=== PATIENT | female | born 1995 | race Caucasian/White ===

== ENCOUNTER → 2020-10-25 07:11 | Outpatient (CLI) | payer OTHER, SELFPAY ==
[2020-10-25 17:20] LABS: SARS-CoV-2 RNA PCR Positive
== END ==
PROVIDERS: PCP Physician Assistant; Visit Provider Physician Assistant
DX: U07.1 COVID-19 (principal)
CPT/HCPCS: C9803; U0003; U0005

== ENCOUNTER 2021-08-26 14:53 | Emergency (ER) | payer OTHER, SELFPAY ==
[2021-08-26 15:27] VITALS: BP 119/95; PULSE 91; RESP 18; TEMP 36.7; O2SAT 100
[2021-08-26] MEDS: SODIUM CHLORIDE 0.9% IV 1,000 ML 999 ML IV CONT (15:45)
[2021-08-26 15:53] LABS: Basophils Percent Auto 0.4 % (0.2-1.2); Eosinophils Absolute Auto 0.1 K/mm3 (0-0.3); Eosinophils Percent Auto 0.8 % (0-4.4); Hematocrit 40.7 % (37.0-47.0); Hemoglobin 13.9 g/dL (12.0-15.0); Immature Granulocyte Absolute 0.03 K/mm3 (0.00-0.031); Immature Granulocyte Percent A 0.4 % (0-0.5); Lymphocytes Absolute Auto 1.82 K/mm3 (0.9-3.2); Lymphocytes Percent Auto 23.2 % (18.3-44.2); Mean Corpuscular HGB Conc 34.2 g/dl (32-36); Mean Corpuscular Hemoglobin 33.2 pg (26-34); Mean Corpuscular Volume 97.1 fl (80-100); Mean Platelet Volume 8.9 fl (7.4-10.4); Monocytes Absolute Auto 0.4 K/mm3 (0.1-0.6); Monocytes Percent Auto 5.6 % (2.6-8.5); Neutrophils Absolute Auto 5.5 K/mm3 (1.3-6.7); Neutrophils Percent Auto 69.6 % (45.5-73.1); Platelet Count Result 278 k/mm3 (150-375); Red Blood Count 4.19 M/mm3 (4.2-5.4); Red Cell Distribution Width 12.4 % (11.5-14.5); White Blood Count 7.9 K/mm3 (4.5-10.0)
[2021-08-26 16:00] LABS: Alanine Aminotransferase 29 U/L (6-35); Albumin Level 4.8 g/dL (3.5-5.1); Alkaline Phosphatase 92 U/L (38-126); Anion Gap 11 mmol/L (8-16); Aspartate Amino Transferase 32 U/L (14-36); Bilirubin,Total 0.4 mg/dL (0.2-1.3); Blood Urea Nitrogen 11 mg/dL (7-17); Calcium 8.9 mg/dL (8.4-10.2); Carbon Dioxide 24 mmol/L (22-30); Chloride 102 mmol/L (98-107); Estimated CRCL calculation 116 ml/min; Estimated Glomerular Filt Rate > 60; Glucose 98 mg/dL (65-110); Lipase 44 U/L (23-300); Sodium 137 mmol/L (137-145)
--- NOTE | 2021-08-26 16:09 | ED.ABDPAIN ---
HPI - Abdominal Pain General Chief Complaint: Nausea/Vomiting/Diarrhea Stated Complaint: vomiting x 1 week Time Seen by Provider: 08/26/21 15:07 History of Present Illness HPI narrative: Patient is a 26-year-old female who presents the ER with diarrhea x1 week. Loose stools daily anytime she eats or drinks. Very rare emesis. Had 1 day where she felt improved for Adderall worsened again. Contacted her PCP who recommended she come to the ER for fluids and lab work. She has had no syncope. No blood in stool. No abdominal pain other than occasional cramping before she has to go the bathroom. No history of inflammatory bowel disease in her family. No known sick contacts. Tried Pepto-Bismol with no relief. Related Data Home Medications Medication Instructions Recorded Confirmed dextroamphetamine-amphetamine PO 08/26/21 sertraline mg 08/26/21 Allergies Allergy/AdvReac Type Severity Reaction Status Date / Time No Known Allergies Allergy Mild Verified 08/26/21 15:25 Review of Systems Review of Systems: All systems reviewed & are unremarkable except as noted in HPI and below Constitutional: Constitutional: Denies chills, Reports fatigue and Denies fever(s) ENT: Denies nasal congestion and Denies sore throat Cardiovascular: Cardiovascular: Denies chest pain, Denies rapid heart rate and Denies radiating jaw, neck or arm pain Respiratory: Respiratory: Denies cough, Denies dyspnea and Denies wheezing Gastrointestinal: Gastrointestinal: Denies abdominal pain, Reports diarrhea, Reports nausea and Reports vomiting Genitourinary: Genitourinary: Denies nocturia and Denies dysuria PMFSH Past Medical History Medical History (Updated 08/26/21 @ 16:15 by Ankur Fang MD) Depression with anxiety Surgical History Surgical History (Updated 08/26/21 @ 16:13 by Ankur Fang MD) No pertinent past surgical history Family History Family History Other Family history of blood dyscrasia Social History Social History Smoking status: Never smoker Second hand tobacco smoke exposure: No Alcohol intake: current Drinks per week: 5 Substance use: never Exam Narrative: GENERAL: Well-appearing, well-nourished, and in no acute distress. HEAD: Normocephalic, atraumatic. EYES: PERRL and EOMI. CHEST: Clear to auscultation. No respiratory distress. HEART: Regular rate and rhythm. Normal peripheral pulses. ABDOMEN: Soft, nontender, nondistended. EXTREMITIES: Normal range of motion. No edema. SKIN: Warm, dry, no rash. NEURO: Alert and oriented x3. PSYCH: Normal mood and affect. Course Course Emergency Course: Patient resting comfortably. Hydrated. Informed results. Discharge home. Vital Signs Vital signs: Vital Signs Temperature 98.1 F 08/26/21 15:27 Pulse Rate 91 08/26/21 15:27 Respiratory Rate 18 08/26/21 15:27 Blood Pressure 119/95 H 08/26/21 15:27 Pulse Oximetry 100 08/26/21 15:27 Temperature 98.1 F 08/26/21 15:27 Pulse Rate 91 08/26/21 15:27 Respiratory Rate 18 08/26/21 15:27 Blood Pressure 119/95 H 08/26/21 15:27 Pulse Oximetry 100 08/26/21 15:27 MDM - Abdominal Pain Lab Data Result diagrams: 08/26/21 15:33 08/26/21 15:33 Labs: Lab Results 08/26/21 08/26/21 Range/Units 15:33 15:33 WBC 7.9 (4.5-10.0) K/mm3 RBC 4.19 L (4.2-5.4) M/mm3 Hgb 13.9 (12.0-15.0) g/dL Hct 40.7 (37.0-47.0) % MCV 97.1 (80-100) fl MCH 33.2 (26-34) pg MCHC 34.2 (32-36) g/dl RDW 12.4 (11.5-14.5) % Plt Count 278 (150-375) k/mm3 MPV 8.9 (7.4-10.4) fl Immature Gran % (Auto) 0.4 (0-0.5) % Neut % (Auto) 69.6 (45.5-73.1) % Lymph % (Auto) 23.2 (18.3-44.2) % [place] % (Auto) 5.6 (2.6-8.5) % Eos % (Auto) 0.8 (0-4.4) % Baso % (Auto) 0.4 (0.2-1.2) % Lymph # (Auto) 1.82
== END 2021-08-26 16:27 | disposition home or self-care (01) ==
PROVIDERS: Emergency Provider Emergency Medicine; PCP Physician Assistant
DX: K52.9 Noninfective gastroenteritis and colitis, unspecified (principal); F41.8 Other specified anxiety disorders
CPT/HCPCS: 36415; 80053; 83690; 85025; 96360; 99283; J7030

== ENCOUNTER 2025-03-01 09:23 | Outpatient (CLI) | payer SELFPAY ==
--- NOTE | ~2025-03-01 | US_ITS ---
EXAMINATION: US thyroid DATE: 03/01/2025 09:34 INDICATION: Abnormal test TECHNIQUE: Multiple ultrasound images of the thyroid were obtained. COMPARISON: None. FINDINGS: The right thyroid lobe measures 4.9 x 1.7 x 1.5 cm. The left thyroid lobe measures 4.8 x 1.8 x 1.5 cm. Isthmus: 2.1 mm 8 mm TI-RADS 3-4 nodule noted in the right lobe. No other nodules or masses. The thyroid appears mildly heterogeneous in echotexture, with hyperemic vascular appearing changes. IMPRESSION: 1. Subcentimeter sonographically indeterminate TI-RADS 3-4 nodule; the lesion is too small for reliable FNA sampling. Correlate with follow-up thyroid ultrasound in 12 months. 2. Hyperemic appearing changes of the thyroid may be associated with thyroiditis. Reviewed, dictated and finalized at location [facility]. [employer] IMPRESSION: 1. Subcentimeter sonographically indeterminate TI-RADS 3-4 nodule; the lesion is too small for reliable FNA sampling. Correlate with follow-up thyroid ultras ound in 12 months. 2. Hyperemic appearing changes of the thyroid may be associated with thyroiditi s.
== END 2025-03-01 09:24 | disposition home or self-care (01) ==
PROVIDERS: Visit Provider Physician Assistant
DX: R94.6 Abnormal results of thyroid function studies (principal); R76.89 Other specified abnormal immunological findings in serum; E04.1 Nontoxic single thyroid nodule
CPT/HCPCS: 76536